=== PATIENT | female | born 1995 | race Caucasian/White ===

== ENCOUNTER 2024-12-28 22:27 | Emergency (ER) | payer OTHER, SELFPAY ==
[2024-12-28 22:29] VITALS: BP 126/78
[2024-12-28 23:00] VITALS: BMI 20.2
[2024-12-28 23:01] VITALS: BP 114/89
[2024-12-28 23:26] LABS: Hematocrit 33.7 % (37.0-47.0); Hemoglobin 11.1 g/dL (12.0-16.0); Mean Corp Hgb Conc. 32.9 g/dL (33.0-37.0); Mean Corpuscular Volume 91.6 fL (81.0-99.0); Nucleated Red Blood Cells % 0 %; Platelet Count 127 10^3/uL (130-400); Red Cell Dist. Width 13.1 % (11.5-14.5)
--- NOTE | 2024-12-28 23:33 | ED.GENMED ---
History of Present Illness
General
Chief Complaint: Fainting/Passed Out
Source: patient and family (Mother at bedside)
Exam Limitations: none
Time Seen by Provider: 12/28/24 23:08
Nursing documentation reviewed up to this point in time: agreed with
History of Present Illness
History of Present Illness:
The patient is a 29-year-old female with a past medical history of tetralogy of Fallot and pulmonary atresia, who presents following an episode of syncope. 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 The patient did
not experience any preceding symptoms such as lightheadedness, tunnel vision, or diaphoresis. According to Mom, present at the time, the patient was fine one moment and then suddenly fell over. The patient was unconscious only for a few seconds and
was caught before hitting the ground, with no significant injuries noted. No seizure activity noted. Post-syncopal examination reveals the patient feels well without chest pain, palpitations, shortness of breath, or neurological symptoms such as
headache or nausea. The patients last menstrual period was two weeks ago, and they are reported to be regular. Denies risk of .
The patient has a significant cardiac history, having undergone two open-heart surgeries and being tracheostomized for a year as a child. She does not routinely take medications.
She had been following with [facility] cardiology, has since transition to cardiology at [facility] with last appointment 2022.
She has an upcoming appointment with cardiology scheduled for January 09 and echocardiogram scheduled for January 03. The patient reports no symptoms consistent with cardiac arrhythmias before or after the syncope.
No prior history of syncopal events.
She does note that she has neglected to eat today. She and mom brought home takeout for dinner, mom consumed her dinner prior to barn chores but patient elected to get her chores done prior to eating dinner. Mom did not realize that patient had
not eaten throughout the day today until after syncopal event. She did eat a cheese stick and route to the hospital.
She has remained asymptomatic, denies pain, no palpitations, no chest pain, no shortness of breath.
Past History
Past History
ED Past Medical History: Other (Tetralogy of Fallot, pulmonary atresia. Repaired at . Required tracheostomy for a year.) and Other (Learning disability)
ED Past Surgical History: Cardiac (Tetralogy of Fallot with pulmonary atresia status post repair. 2 open heart surgeries. Previous tracheostomy for first year of life.)
Social History
Tobacco: Non-smoker
Alcohol: None
Drug: None
Personal: Single
Living: with family
Employment: Disabled
Family History
Family History: Other (Noncontributory)
Phy Exam
Physical Exam
Physical Exam:
GENERAL: 29-year-old female appears somewhat younger than stated age. Small frame. She is bright and alert, pleasant, appears in no acute distress. Mom is accompanying.
EYE: pupils equal and reactive. Extraocular muscles intact.. The head is normocephalic, atraumatic. Anicteric
NECK: Supple, nontender, no meningismus, no significant adenopathy. Full range of motion without difficulty nor pain.
ENT: posterior pharynx is clear, oral mucosa is moist. TM clear b/l, nares patent.
CARDIAC: Regular rhythm, tachycardic at 130. 4/6 holosystolic murmur
LUNGS: Clear breath sounds bilaterally, no acute respiratory distress, no wheezes/rales/rhonchi
ABDOMEN: Soft, nondistended, without focal tenderness, no r/g, no cvat. normoactive BS.
NEUROLOGICAL: Alert and oriented x3, no focal neuro deficits.
SKIN: Warm and dry, normal color, skin intact. No rash.
MUSCULOSKELETAL: No C/C/E. peripheral pulses are full and equal b/l. No palpable tenderness.
PSYCH: Normal and appropriate interaction.
Course
Orders/Labs/Results
Orders:
Orders
12/28/24 22:32
ECG [Electrocardiogram (*1)] Urgent
Reason for Study: Tachycardia
EKG- Treatment ONCE
12/28/24 23:11
CBC/With Diff [Complete Blood Count/With Diff] Urgent
Comprehensive Metabolic Panel Urgent
HCG, Serum Qualitative Screen Urgent
Comment: ADDED
TSH Reflex To Free T4 Urgent
Comment: ADDED
12/28/24 23:33
Add On- LAB Urgent
Tests Added?: serum qual HCG; TSH w reflex to free T-4
12/29/24 00:21
D-Dimer Urgent
12/29/24 01:33
Orthostatic VS- Treatment ONCE
12/29/24 01:34
3 Minute Walk Test [3 Minute Walk Test- Treatment] ONCE
Abnormal Lab Results
12/28/24
23:11
RBC 3.68 L 10^6/uL
(4.20-5.40)
Hgb 11.1 L g/dL
(12.0-16.0)
Hct 33.7 L %
(37.0-47.0)
MCHC 32.9 L g/dL
(33.0-37.0)
Plt Count 127 L 10^3/uL
(130-400)
MPV 14.3 H fL
(7.4-10.4)
Absolute Lymphs (auto) 1.1 L 10^3/uL
(1.2-3.4)
Lymphocytes % 15.7 L %
(20.5-51.1)
12/28/24 23:11
12/28/24 23:11
Vital Signs
Initial and Last Documented VS:
Initial Vital Signs
Temp Pulse Resp BP Pulse Ox
98 F 140 20 126/78 99
12/28/24 22:29 12/28/24 22:29 12/28/24 22:29 12/28/24 22:29 12/28/24 22:29
Last Documented Vital Signs
Temp Pulse Resp BP Pulse Ox
98 F 141 16 110/83 96
12/28/24 22:29 12/29/24 01:34 12/29/24 01:34 12/29/24 01:34 12/29/24 01:34
MDM/Problems Addressed
Differential Diagnosis Includes:
The Differential Diagnosis includes, in no particular order and is not limited to:
1. Cardiac arrhythmia
2. Vasovagal syncope
3. Orthostatic hypotension
4. Hypoglycemia
5. Electrolyte imbalance
6. Dehydration
7. Seizure
8. Neurological disorder
9. Psychiatric condition
10. Medication side effect
MDM/Problems Addressed:
Acute: Syncope
Chronic: Tetralogy of Fallot with pulmonary atresia
Overall well in appearance and remains asymptomatic.
Reported no prodromal symptoms prior to syncope.
Syncopal event could certainly be related to neglecting oral nutrition today which is appears to be out of the ordinary.
No traumatic findings on exam save for minimal early ecchymosis left anterior lower leg that is overall nontender.
Exam notable for persistent sinus tachycardia at 130-138. Patient remains asymptomatic, denies palpitations. This may be her resting heart rate but unclear.
Will attempt to obtain prior records, prior EKG through [facility] link.
Will check labs including thyroid function, hCG.
Patient has been provided with a box lunch.
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
*Pulse Oximetry
SaO2: 99
Oxygen Mode of Delivery: Room air
Patient hypoxic: no
*EKG
Interpreted by ED Provider?: Yes
Interpretation: abnormal
Comparison EKG: no comparison EKG present
Rate: tachycardiac
Rhythm: sinus
[place]: normal axis
Interval: normal QT interval
QRS Pattern: right bundle branch block
Ischemia: other (Q waves inferiorly as well as laterally. No old EKGs to compare.)
*Aquatic Habitat [employer]ologist Interpretation
Rate: tachycardiac
Interpretation: abnormal
Rhythm: sinus
*Critical Care Note
Total Time (30-74mins, 75-104mins- exclusive of procedures): Not Applicable
Update Note
Update Note:
02:10
Patient has consumed a box lunch.
She continues to feel well, completely asymptomatic.
Labs are overall unremarkable. Very mild anemia with hemoglobin of 11.1. Chemistries are unremarkable. Normal TSH, normal D-dimer.
Orthostatic vital signs are negative.
3-minute walk test, heart rate essentially unchanged and she remains asymptomatic without chest pain nor shortness of breath nor palpitations.
Although sinus tachycardia persists she remains asymptomatic and otherwise hemodynamically stable. This may be her baseline.
Will discharge to home with recommendations to avoid skipping meals as well as stay well-hydrated on a daily basis.
She has a planned echocardiogram for January 03 as well as instrument [employer] visit January 09.
Return precautions discussed.
ED Attending Note
-
Portions of this chart may have been created with voice recognition software.� Occasional wrong word or��sound alike� substitutions may have occurred due to the inherent limitations of voice recognition software.
Discharge Plan
Departure
Patient Disposition: Home (Routine Discharge)
Date of Disposition: 12/29/24
Time of Disposition: 02:13
Patient with high blood pressure during this ER visit?: No
Condition: Good
Discharge Problem:
Syncope
Instructions: Syncope (Fainting) (DC)
Referrals:
Keren Cooper MD [Family Provider, Family Practice]
Activity Restrictions/Additional Instructions:
Follow-up with your instrument [employer] for echocardiogram and office visit next week as already scheduled.
Avoid skipping meals. Stay well-hydrated on a daily basis.
Interventions
Interventions:
*General Assessment Last Done: 12/28/24 22:29
*ED- Fall Risk Assessment Last Done: 12/28/24 23:01
*ED COVID-19 Vaccine History Last Done: 12/28/24 23:01
ED- Cardiac Assessment Last Done: 12/28/24 23:01
ED- Neurological Assessment Last Done: 12/28/24 23:01
Discharge Date and Time
Print Language: CROATIAN
[2024-12-28 23:41] LABS: ALT (SGPT) 16 U/L (0-35); AST (SGOT) 20 U/L (14-36); Albumin 4.4 g/dl (3.5-5.0); Alkaline Phosphatase 52 U/L (38-126); Blood Urea Nitrogen 15 mg/dl (7-17); Calcium 9.5 mg/dl (8.4-10.2); Carbon Dioxide 28 mmol/L (22-30); Chloride 102 mmol/L (98-107); Estimated Creatinine Clearance 86 ml/min; Glucose 92 mg/dl (70-99); Potassium 4.1 mmol/L (3.5-5.1); Sodium 135 mmol/L (135-145); Total Protein 6.7 g/dl (6.3-8.2); eGFR > 60.00
[2024-12-29] VITALS (9 sets, daily range): BP systolic 104–117; BP diastolic 71–83; PULSE 135–137
[2024-12-29 00:08] LABS: HCG, Serum Qualitative Screen Negative
[2024-12-29 01:05] LABS: D-Dimer 0.28 ug/mlFEU (0.00-0.50)
== END 2024-12-29 02:40 | disposition home or self-care (01) ==
LOC: EMR 22:27
PROVIDERS: Emergency Medicine; EMERGENCY PHYSICIAN Emergency Medicine; FAMILY PHYSICIAN Family Medicine
DX: R55 Syncope and collapse (principal); R00.0 Tachycardia, unspecified; I45.10 Unspecified right bundle-branch block; D64.9 Anemia, unspecified; Z87.74 Personal history of (corrected) congenital malformations of heart and circulatory system
CPT/HCPCS: 99284; 80053; 84443; 84703; 85025; 85379; 93005